=== PATIENT | female | born 1995 | race Caucasian/White ===

== ENCOUNTER 2017-01-03 13:38 | Emergency (ER) | payer BC ==
--- NOTE | ~2017-01-03 | ER ---
PATIENT'S NAME: [facility] AGE: 21 Y [address] ROOM: [place] [address] LOCATION: ED ADMIT DATE: 01/03/2017 ER/Outpatient Report DISCHARGE DATE: FAMILY PHYSICIAN: Physician, Unknown ATTENDING PHYSICIAN: Juvenal Munguia CHIEF COMPLAINT: Anxiety and depression. I saw this patient in conjunction with Dr. Radha Ciu, physician resident. Please see her dictation for full details of the encounter. Briefly, Ms. Stinson presents to the ER after panic and anxiety attack this afternoon. 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 This was just very overwhelming for her. Earlier today, she had thoughts of self-harm, but states that she could not actually do it. She was recently started on thyroid replacement hormone and also on a sertraline medication. She denies active thoughts of self-harm or hallucinations. PAST MEDICAL HISTORY: Documented on the record and reviewed by me. SOCIAL HISTORY: Documented on the record and reviewed by me. MEDICATIONS: Documented on the record and reviewed by me. ALLERGIES: DOCUMENTED ON THE RECORD AND REVIEWED BY ME. PHYSICAL EXAMINATION: VITAL SIGNS: Blood pressure 161/94, pulse 90, respiratory rate 15, temperature 99.4, SpO2 is 99% on room air. Pain 0/10. The patient has no physical abnormalities appreciated on exam by myself. LABORATORY DATA: Labs reveal hypothyroidism. CMS with no appreciable abnormalities. Alcohol, acetaminophen, and salicylate are nondetectable. CBC is unremarkable. Urine drug screen is unremarkable. ASSESSMENT AND PLAN: Based on the overall situation, she was given Ativan which helped her feel better. She was evaluated by Konstantin Jimenes for her thoughts of self-harm PATIENT'S NAME: [facility] AGE: 21 Y [address] ROOM: [place] [address] LOCATION: ED ADMIT DATE: 01/03/2017 ER/Outpatient Report DISCHARGE DATE: FAMILY PHYSICIAN: Physician, Unknown ATTENDING PHYSICIAN: Juvenal Munguia earlier in the day. She was given resources for coping and 2 separate counseling phone numbers. She has agreed to call for any help if she was not doing well or thought she would hurt herself. The plan as far as I can tell is for the patient to go to [place] for evaluation by her usual provider with family today. She left the ER in stable condition with family. MD ARYAN VILLAGOMEZ/rene /[id number] d: 01/03/17 2256 t: 01/09/17 0641, OUTPATIENT REPORT
--- NOTE | ~2017-01-03 | ER ---
PATIENT'S NAME: [facility] AGE: 21 Y [address] ROOM: [place] [address] LOCATION: [facility] ADMIT DATE: 01/03/2017 ER/Outpatient Report DISCHARGE DATE: FAMILY PHYSICIAN: Physician, Unknown ATTENDING PHYSICIAN: Juvenal Munguia Time of Arrival: 1338 hours. Time of Evaluation: 1341 hours. CHIEF COMPLAINT: Severe anxiety. HISTORY OF PRESENT ILLNESS: This is a 21-year-old female, who arrives via private car for anxiety and depression. She reports that she has had a history of severe anxiety and depression and was seen by her primary care physician 2 days ago in [place], [place] and started on Zoloft. She also had her thyroid checked at that time and thinks her TSH was mildly elevated. She reports that currently her symptoms include tight chest, tingling in her mouth, shortness of breath, and some nausea and diarrhea from her anxiety. She also has racing thoughts and does get insomnia from this. She reports that she has thought about suicide and self-harm in the past, but would never go through with it and does not have a plan. Feels that her biggest stressor right now is school. 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 PAST MEDICAL HISTORY: Includes: Anxiety, depression, and hypothyroidism that was newly diagnosed a month ago. SOCIAL HISTORY: She is a senior here at [employer]. Denies alcohol, illicit drug, or tobacco use. She is from [place], [place] originally. MEDICATIONS: Takes levothyroxine and was recently started on Zoloft 50 mg 2 days ago. ALLERGIES: DENIES ANY MEDICATION ALLERGIES. REVIEW OF SYSTEMS: All review of systems was assessed by me and is negative except for that listed in the HPI. PHYSICAL EXAMINATION: PATIENT'S NAME: [facility] AGE: 21 Y [address] ROOM: [place] [address] LOCATION: [facility] ADMIT DATE: 01/03/2017 ER/Outpatient Report DISCHARGE DATE: FAMILY PHYSICIAN: Physician, Unknown ATTENDING PHYSICIAN: Juvenal Munguia VITAL SIGNS: Blood pressure 161/94, pulse 90, respiratory rate 18, temperature 99.4, and oxygen saturation 99% on room air. GENERAL: This is a 21-year-old female appearing her stated age. Tearful with interview. HEENT: Swollen eyelids. Pupils equal, round, and reactive to light. She is making tears. Moist mucous membranes. CARDIOVASCULAR: Heart is regular rhythm. LUNGS: Clear to auscultation bilaterally. EXTREMITIES: No edema noted. SKIN: Does have some erythema over her arms that blanches. NEUROLOGIC: Normal gait. PSYCHIATRIC: Dysphoric mood. Normal speech and affect. Normal judgment and insight. LABORATORY DATA AND IMAGING STUDIES: Labs and X-rays: TSH was 5.970. Sodium 140, potassium 3.7, chloride 108, bicarbonate of 21, calcium was 9.5, glucose 91, and creatinine 1.1. Alkaline phosphatase, AST, and ALT were normal, and GFR of 72. Alcohol, Tylenol, and salicylate levels are normal. Her CBC was unremarkable. An UDS was negative. UA was also unremarkable. IMPRESSION: Anxiety with panic attacks. EMERGENCY DEPARTMENT COURSE: The patient was given 1 mg of Ativan p.o. Konstantin Jimenes Mental [facility] counselor did come to the ED to evaluate the patient. She recommended discharge at this time with outpatient followup for counseling as well as medication management. The patient is agreeable to this and understands the treatment course. We will plan to discharge from the ER at this time. RACHEAL COLINDRES MD FOR MD ISIDRA VILLAGOMEZ/rene /[id number] d: 01/03/172200 t: 01/09/17 0644, OUTPATIENT REPORT
[2017-01-03 14:29] LABS: BASOPHIL # 0.1 K/uL (0.0-0.2); BASOPHIL % 0.5 %; EOSINOPHIL % 0.4 %; HEMATOCRIT 42.3 % (33.0-46.0); IMMATURE GRANULOCYTE # 0.1 K/uL (0.0-0.3); IMMATURE GRANULOCYTE % 0.5 %; LYMPHOCYTE # 2.8 K/uL (0.8-4.0); LYMPHOCYTE % 29.6 %; MCH 30.7 pg (27.0-34.0); MCHC 35.5 gm/dL (32.0-36.5); MCV 86.5 fl (83.0-98.0); MONOCYTE # 0.6 K/uL (0.0-1.0); MONOCYTE % 5.8 %; MPV 10.6 fl (9.4-12.4); NEUTROPHIL # (ANC) 5.9 K/uL (1.8-7.8); NEUTROPHIL % 63.2 %; NRBC % 0 /100WBC (0-0.00); PLATELET COUNT 339 K/uL (150-450); RBC 4.89 M/uL (3.50-5.00); RDW-CV 12.2 % (11.9-14.6); WBC 9.4 K/uL (4.0-11.0)
[2017-01-03 14:47] LABS: ALBUMIN 4.5 gm/dL (3.5-5.0); ALK PHOS 79 IU/L (33-138); ALT 22 IU/L (12-78); ANION GAP 14.7 (10.0-19.0); AST 12 IU/L (10-40); BLOOD UREA NITROGEN 10 mg/dL (6-24); CALCIUM 9.5 mg/dL (8.5-10.5); CHLORIDE 108 mMol/L (96-110); CO2 21 mMol/L (22-32); CREATININE 1.1 mg/dL (0.5-1.1); POTASSIUM 3.7 mMol/L (3.7-5.1); SODIUM 140 mMol/L (135-145); TOTAL BILIRUBIN 0.6 mg/dL (0.0-1.5); TOTAL PROTEIN 8.5 g/dL (6.0-8.4)
[2017-01-03 15:15] LABS: BILIRUBIN URINE NEGATIVE (NEGATIVE); BLOOD URINE NEGATIVE /UL (NEGATIVE); COLOR URINE YELLOW (YELLOW); GLUCOSE URINE NEGATIVE (NEGATIVE); KETONE URINE 15 mg/dL (NEGATIVE); LEUKOCYTES URINE NEGATIVE /UL (NEGATIVE); NITRITE URINE NEGATIVE (NEGATIVE); PROTEIN URINE NEGATIVE (NEGATIVE); SPEC GRAVITY URINE 1.005 (1.003-1.035); TURBIDITY URINE CLEAR (CLEAR); UROBILINOGEN URINE NORMAL (NORMAL)
[2017-01-03 15:31] LABS: AMPHETAMINE NEGATIVE (NEGATIVE); BARBITURATE NEGATIVE (NEGATIVE); COCAINE NEGATIVE (NEGATIVE); OPIATES NEGATIVE (NEGATIVE)
== END 2017-01-03 16:20 | disposition disaster alternative care site (69) ==
LOC: GMED 13:38
PROVIDERS: Emergency Medicine
DX: F41.0 Panic disorder [episodic paroxysmal anxiety] (principal); E03.9 Hypothyroidism, unspecified; F32.9 Major depressive disorder, single episode, unspecified; Z79.899 Other long term (current) drug therapy
CPT/HCPCS: G0480